=== PATIENT | female | born 1945 | race Caucasian/White ===

== ENCOUNTER → 2016-10-15 | Outpatient (CLI) | payer MEDICARE, BC ==
[~2016-10-15] VITALS: Ht 157.5 cm; Wt 79.5 kg
[~2016-10-15] MED LIST: ALBU14.76 IH; ASPI-558 PO; ESCI20TA22 PO; LEVO75TA9 PO; METO25TA27 PO; POTA10TA93 PO; TRIA1TAB72 PO; [UNRECOGNIZED DRUG - CODE] PO
== END ==
LOC: RC 08:27
PROVIDERS: ATTEND Family Medicine
DX: J43.9 Emphysema, unspecified (principal); Z87.891 Personal history of nicotine dependence
CPT/HCPCS: 94060; 94726